=== PATIENT | male | born 1980 | race Hispanic/Latino ===

== ENCOUNTER 2021-01-08 08:03 | Observation (INO) | payer SELFPAY ==
[~2021-01-08] VITALS: Ht 167.6 cm; Wt 122.5 kg
[2021-01-08] MEDS ORDERED: KETOROLAC TROMETHAMINE 30 MG/ML VIAL IV STA (08:07)
[2021-01-08 08:41] LABS: BASOPHILS % 0.5 % (0.0-1.0); EOSINOPHILS # (AUTO) 0.4 (0.0-0.4); EOSINOPHILS % 4.3 % (0.0-6.0); HEMATOCRIT 42.2 % (38.2-49.6); HEMOGLOBIN 14.3 g/dL (14.0-18.0); LYMPHOCYTES % 35.7 % (18.0-39.1); MEAN CORPUSCULAR HEMOGLOBIN 30.8 pg (28-32); MEAN CORPUSCULAR HGB CONC 33.9 g/dL (31-35); MEAN CORPUSCULAR VOLUME 90.8 fL (81-99); MONOCYTES # (AUTO) 0.6 (0.2-0.8); MONOCYTES % 7.3 % (4.4-11.3); NEUTROPHILS # (AUTO) 4.4 (2.1-6.9); NEUTROPHILS % 51.8 % (38.7-80.0); PLATELET COUNT 211 x10e3/uL (140-360); RED BLOOD COUNT 4.65 x10e6/uL (4.3-5.7); RED CELL DISTRIBUTION WIDTH 13.2 % (11.7-14.4)
[2021-01-08 09:01] LABS: ALANINE AMINOTRANSFERASE 71 IU/L (0-55); ALBUMIN 3.5 g/dL (3.5-5.0); ALBUMIN/GLOBULIN RATIO 0.9 (0.8-2.0); ALKALINE PHOSPHATASE 82 IU/L (40-150); ANION GAP 12.7 mmol/L (8-16); BLOOD UREA NITROGEN 10 mg/dL (7-26); BUN/CREATININE RATIO 11 (6-25); CALCIUM 8.5 mg/dL (8.4-10.2); CARBON DIOXIDE 24 mmol/L (22-29); CHLORIDE 104 mmol/L (98-107); CREATINE KINASE 1194 IU/L (30-200); CREATININE, SERUM 0.87 mg/dL (0.72-1.25); EST GLOMERULAR FILTRATION RATE 96 ML/MIN (60-); GLUCOSE 94 mg/dL (74-118); POTASSIUM 3.7 mmol/L (3.5-5.1); SODIUM 137 mmol/L (136-145)
[2021-01-08] MEDS ORDERED: SODIUM CHLORIDE 0.9% 1000ML 1,000 ML IV STA ×2 (09:25)
[2021-01-08 12:11] LABS: CREATINE KINASE MB 11.8 ng/mL (0-5.0)
[2021-01-08] MEDS ORDERED: FAMOTIDINE 20 MG/2 ML VIAL IV SCH (12:45)
[2021-01-08] MEDS ORDERED: ONDANSETRON HCL INJ 2MG/ML 2ML 2 MG/ML VIAL IV PRN (12:45)
[2021-01-08] MEDS ORDERED: Morphine 2mg Syringe 2 MG/ML SYR IV PRN (12:45)
[2021-01-08] MEDS ORDERED: ASPIRIN 81 MG CHEW TAB PO ONE ×2 (12:45→13:30)
[2021-01-08] MEDS ORDERED: ACETAMINOPHEN 325 MG TAB PO PRN (13:15)
[2021-01-08] MEDS: SODIUM CHLORIDE 0.9% 1000ML 1,000 ML IV SCH ×2 (13:44→21:19)
[2021-01-08] MEDS: AMLODIPINE BESYLATE 5 MG TAB PO SCH (16:34)
[2021-01-08 17:42] VITALS: BP 157/95
[2021-01-08 17:47] VITALS: BP 157/95
[2021-01-08 20:00] VITALS: BP 154/80
[2021-01-08 20:07] LABS: CREATINE KINASE MB 10.2 ng/mL (0-5.0)
[2021-01-08 21:00] VITALS: BP 154/80
[2021-01-09] VITALS: BP 123/80
[2021-01-09] MEDS: SODIUM CHLORIDE 0.9% 1000ML 1,000 ML IV SCH ×2 (02:05→07:41)
[2021-01-09 03:16] LABS: CREATINE KINASE MB 20.7 ng/mL (0-5.0)
[2021-01-09 04:00] VITALS: BP 160/70
[2021-01-09 06:25] LABS: BASOPHILS % 0.6 % (0.0-1.0); EOSINOPHILS # (AUTO) 0.4 (0.0-0.4); EOSINOPHILS % 6.6 % (0.0-6.0); HEMATOCRIT 40.7 % (38.2-49.6); HEMOGLOBIN 13.8 g/dL (14.0-18.0); LYMPHOCYTES # (AUTO) 2.4 (1.0-3.2); LYMPHOCYTES % 35.3 % (18.0-39.1); MEAN CORPUSCULAR HEMOGLOBIN 30.4 pg (28-32); MEAN CORPUSCULAR HGB CONC 33.9 g/dL (31-35); MEAN CORPUSCULAR VOLUME 89.6 fL (81-99); MONOCYTES # (AUTO) 0.6 (0.2-0.8); MONOCYTES % 8.3 % (4.4-11.3); NEUTROPHILS # (AUTO) 3.3 (2.1-6.9); NEUTROPHILS % 48.9 % (38.7-80.0); PLATELET COUNT 197 x10e3/uL (140-360); RED BLOOD COUNT 4.54 x10e6/uL (4.3-5.7); RED CELL DISTRIBUTION WIDTH 13.2 % (11.7-14.4)
[2021-01-09 06:51] LABS: CREATINE KINASE MB 18.7 ng/mL (0-5.0)
[2021-01-09 06:57] LABS: ALBUMIN/GLOBULIN RATIO 0.8 (0.8-2.0); ANION GAP 13.6 mmol/L (8-16); CALCIUM 8.3 mg/dL (8.4-10.2); CHOL/HDL RATIO 5.3 (3.9-4.7); CREATININE, SERUM 0.78 mg/dL (0.72-1.25); POTASSIUM 3.6 mmol/L (3.5-5.1)
[2021-01-09 07:21] VITALS: BP 135/73
[2021-01-09] MEDS: AMLODIPINE BESYLATE 5 MG TAB PO SCH (08:09)
[2021-01-09 08:29] VITALS: BP 135/73
[2021-01-09] MEDS ORDERED: ONDANSETRON HCL 4 MG ORAL DISINTEGRATING TAB PO PRN (09:00)
[2021-01-09] MEDS ORDERED: ASPIRIN 81 MG ENTERIC COATED PO SCH (09:00)
[2021-01-09 11:03] VITALS: BP 131/93
== END 2021-01-09 14:50 | disposition home or self-care (01) ==
LOC: ER 08:22 → ERHOLD 12:55 → MED/SURG 17:26
PROVIDERS: ADMIT Internal Medicine; ATTEND Internal Medicine
DX: R07.89 Other chest pain (principal); M62.82 Rhabdomyolysis; E66.01 Morbid (severe) obesity due to excess calories; Z68.41 Body mass index [BMI] 40.0-44.9, adult; F17.210 Nicotine dependence, cigarettes, uncomplicated; K76.0 Fatty (change of) liver, not elsewhere classified; R07.1 Chest pain on breathing
CPT/HCPCS: 36415 ×2; 71045; 76705; 80053 ×2; 80061; 82248; 82390; 82550 ×2; 82553 ×2; 83540; 84484 ×2; 85025 ×2; 86039; 93005; 93017; 99284; G0378 ×2; J1885; J7030; U0002

== ENCOUNTER 2022-06-16 02:33 | Emergency (ER) | payer SELFPAY ==
[~2022-06-16] VITALS: Ht 167.6 cm; Wt 120.2 kg
[2022-06-16] MEDS ORDERED: TRAMADOL HCL 50 MG TAB PO STA (02:42)
[2022-06-16] MEDS ORDERED: ULTRAM 50MG50 MG PO (03:51)
== END 2022-06-16 04:00 | disposition home or self-care (01) ==
LOC: ER 02:40
DX: S93.491A Sprain of other ligament of right ankle, initial encounter (principal); M25.471 Effusion, right ankle; X50.1XXA Overexertion from prolonged static or awkward postures, initial encounter; Y93.01 Activity, walking, marching and hiking; Y92.89 Other specified places as the place of occurrence of the external cause
CPT/HCPCS: 99284